=== PATIENT | female | born 1970 ===

== ENCOUNTER 2021-02-27 09:03 | Inpatient (IN) | payer BC ==
[~2021-02-27] VITALS: Ht 177.8 cm; Wt 128.7 kg
[2021-03-12] VITALS (11 sets, daily range): BP systolic 97–129; BP diastolic 45–92; PULSE 53–85; TEMP 97.4–98.9
--- NOTE | 2021-03-12 07:30 | NUR ---
The patient ambulated back to [place] [facility] independently using a steady gait and appeared to tolerate the activity well. Vital signs obtained. Consent signed. Assessment completed. MATIAS hose applied to left leg. Pre op scrub completed to right knee. 18G IV started in left hand with one stick, LR Infusing without difficulty. Call light is within reach. Warm blanket provided. The patient denies any further needs. Will continue to monitor the patient.
[2021-03-12] MEDS ORDERED: TOPROL XL 50MG50 MG PO (07:37)
[2021-03-12] MEDS ORDERED: ADDERALL XR30 MG PO (07:38)
[2021-03-12] MEDS ORDERED: VITAMIN D 50,1.25 MG PO (07:38)
[2021-03-12] MEDS ORDERED: VOLTAREN 75 DR75 MG PO (07:38)
[2021-03-12] MEDS ORDERED: NEURONTIN300 MG/CAP PO (07:39)
[2021-03-12] MEDS ORDERED: WELLBUTRIN XL300 M1 PO (07:39)
[2021-03-12] MEDS ORDERED: COZAAR 50MG50 MG/TAB PO (07:40)
[2021-03-12] MEDS ORDERED: NORCO 325 MG-51 TAB PO (07:41)
[2021-03-12] MEDS ORDERED: MAGNESIUM500 MG PO (15:55)
--- NOTE | 2021-03-12 17:07 | NUR ---
Patient alert and oriented, answers questions appropriately. See assessment. Right knee with dressing CDI. MATIAS hose and SCDs in place. No c/o numbness or tingling to RLE. Patient has ambulated to the bathroom 3x since surgery. C/o pain to right low back and hip 10/. States this is chronic for her, assumes increase in pain is r/t laying flat during surgery. No other c/o at this time.
--- NOTE | 2021-03-12 19:58 | NUR ---
Patient yen, states she is having "too much pain". Pain is in her right buttock and hip. No right knee pain at this time. Patient requests prn pain medications be given "when they are due". Patient also states she used her call light to ask for ice packs, states "whoever answered the light hung up and ignored me, so I called back and was told ok, with no ice packs yet". States she asked for the ice packs about ten minutes ago. Patient also c/o attempting to order a peanut butter sandwich from [employer] and they wouldn't listen to her, they just told her 'we don't have any clean dishes, when we get some, we will bring your meal". Patient upset that dietary brought her chicken parmesan instead of a peanut butter sandwich, but declined when this nurse offered to get her a peanut butter sandwich. Toradol IV given to patient at this time. As soon as the syringe was connected, patient yells "fucking stop that, that gupta", then proceeds to put her hand on this nurses chest. No medications had been infused, just the syringe connected. Patient was told that no medicines had been infused, she then states "give me the pain medicine". Toradol given and IV flushed. Patient states "I just need to get out of here as soon as I can in the morning, I knew I shouldn't have came here". Patient refuses to further talk about previous statement. Asked if there was anything else that could be done for patient at this time, refused anything. Call light in reach, PCT filling ice bags. Encouraged patient to call with concerns.
--- NOTE | 2021-03-12 21:05 | NUR ---
PT IN BED. PTS HOME MEDS WERE REORDERED EXCLUDING DICLOFENAC. PT AGREES TO MEDS BUT DOES NOT WANT COZAAR. MEDICATED WITH MEDS NOW INCLUDING OXYCODONE 5MG PO FOR PAIN. PT HAS SL TO LEFT HAND. PT HAS BEEN INDEPENDENT IN ROOM, OBSERVED HER AMBULATING TO BATHROOM WITH WALKER, GAIT STEADY. HAS ANA WRAP TO RT KNEE AND LOWER LEG. COMPLAINS OF RT HIP PAIN AND IS USING ICE PACKS WELL FOR COMFORT. REPOSITIONING SELF IN BED.
--- NOTE | 2021-03-12 22:23 | NUR ---
MEDICATED WITH DILAUDID 0.5MG IVP FOR RT KNEE AND RT HIP PAIN.
[2021-03-13 00:17] VITALS: BP 124/80; PULSE 91; TEMP 98.2
--- NOTE | 2021-03-13 01:20 | NUR ---
PT GIVEN SCHEDULED TORADOL IV ALSO GIVEN OXYCODONE 5MG PO FOR RT KNEE AND RT HIP PAIN.
[2021-03-13 03:04] VITALS: BP 119/78; PULSE 93; TEMP 98
--- NOTE | 2021-03-13 05:53 | NUR ---
Pt complaining of right thigh "spasms", medicated with Oxycodone 5mg po at this time. New ice pack applied.
--- NOTE | 2021-03-13 06:55 | NUR ---
awake and sitting up on side of bed, c/o pain/spasms to right thigh, bedside shift report received from VERONICA Gallagher, will medicate for pain
--- NOTE | 2021-03-13 07:00 | NUR ---
Pt writhing in bed, right thigh spasms continue. Medicated with IV Dilaudid 0.5mg at this time.
--- NOTE | 2021-03-13 07:30 | NUR ---
states dilaudid has helped with pain and is now resting quietly in bed, full assessment completed, see interventions for further info, ariana wrqap removed from right leg, aquacel dressing in place and is CD&I, MATIAS denny on, will order breakfast, medicated with scheduled toradol
[2021-03-13 08:10] LABS: HEMATOCRIT 33.2 % (37.0-47.0)
[2021-03-13 08:44] VITALS: BP 134/70; PULSE 69; TEMP 99.2
--- NOTE | 2021-03-13 09:00 | NUR ---
physical therapy in to work with patient, up and ambulating in [place] with walker with steady gait
--- NOTE | 2021-03-13 10:00 | NUR ---
c/o pain to right knee and thigh, medicated with oxycodone 5mg
--- NOTE | 2021-03-13 11:09 | NUR ---
is back in bed lying on left side with eyes closed,
--- NOTE | 2021-03-13 12:10 | NUR ---
is awake and continuing to c/o pain, medicated with roxicodone 5mg as the second tab since recieving 5mg at 1000,
--- NOTE | 2021-03-13 13:44 | NUR ---
physical therapy in working with patient, medicated with scheduled toradol
--- NOTE | 2021-03-13 15:00 | NUR ---
continues to c/o pain to right knee, medicated with roxicodone 5mg and it does not exceed 10mg in 3 hours, ARIANA Hernádnez notified
[2021-03-13 15:27] VITALS: BP 130/67; PULSE 65; TEMP 98.3
--- NOTE | 2021-03-13 16:16 | NUR ---
Qual Field Manager met with patient to discuss discharge planning. Patient lives in [place] and sees Dr. Adarsh Khan for primary care. Patient states her significant other, Maximus works hollow tile partition erector in [place] but stays with her from to Thursday. Patient advised she obtains medications from [facility] in [place] with no difficulties. Patient does not normally use any DME and is independent with [facility]. Patient has a walker but worries it may be too short. Patient states she may be interested in obtaining an order for a new walker. SW placed order on chart for provider signature. Patient plans to return home upon discharge.
--- NOTE | 2021-03-13 17:20 | NUR ---
states pain was doing much better awhile ago but then after getting back into bed it just started back up, medicated with roxicodone 5mg
--- NOTE | 2021-03-13 18:46 | NUR ---
bedside shift report given to VERONICA Mackay, medicated with tylenol 650mg po
--- NOTE | 2021-03-13 19:20 | NUR ---
PT RESTING IN BED. PAIN HAS BEEN AN ISSUE TODAY. SEE MAR FOR MEDS GIVEN. RLE HAS MILD BRUISING TO INNER POSTERIOR THIGH. ICC PACK PRN. CALL LIGHT IN REACH.
[2021-03-13 19:41] VITALS: BP 128/79; PULSE 85; TEMP 99
[2021-03-14 01:14] VITALS: BP 129/75; PULSE 79; TEMP 98
[2021-03-14 03:37] VITALS: BP 130/70; PULSE 79; TEMP 97.8
[2021-03-14 06:16] LABS: HEMOGLOBIN 10.1 g/dl (12.5-16.0)
[2021-03-14 06:19] LABS: HEMATOCRIT 30.6 % (37.0-47.0)
[2021-03-14 08:00] VITALS: BP 138/56; PULSE 76; TEMP 99.4
--- NOTE | 2021-03-14 09:46 | NUR ---
Initial visit; Patient thanked Sound Art Instructor for looking in on her, offering prayer and God's blessings. [facility]ain will follow up.
--- NOTE | 2021-03-14 10:01 | NUR ---
PT UP WITH THERAPY, DR. IRIZARRY IN TO SEE PT. DISCHARGE ORDERS RECIEVED. PLAN ON GOING HOME AFTER THERAPY.
--- NOTE | 2021-03-14 14:58 | NUR ---
DISCHARGE INSTRUCTIONS REVIEWED WITH PATIENT. QUESTIONS ANSWERED.
--- NOTE | 2021-03-14 15:52 | NUR ---
pt completed stair traning with therapy.
== END 2021-03-14 15:15 | disposition home or self-care (01) | DRG 470 ==
LOC: SURG 03-12 06:50 → INPTSU 03-12 06:50 → SURG 03-12 09:15
PROVIDERS: ADMIT Orthopaedic Surgery Sports Medicine
PROC: 0SRC0J9 Replacement of Right Knee Joint with Synthetic Substitute, Cemented, Open Approach (ICD-10-PCS; principal; 2021-03-12 09:15)
DX: M17.11 Unilateral primary osteoarthritis, right knee (principal)
CPT/HCPCS: A9284; C1713; C1776; J0690; J1170; J1885; J2250; J2405; J2704; J2795; J7120